=== PATIENT | male | born 1960 | race Asian ===

== ENCOUNTER 2020-01-21 15:30 | Emergency (ER) | payer OTHER ==
[~2020-01-21] VITALS: Ht 175.3 cm; Wt 80.7 kg
[2020-01-21 15:37] VITALS: BP 199/103
--- NOTE | 2020-01-21 15:50 | NUR ---
PT UP AND AMBULATED TO RESTROOM WITH STEADY GAIT
--- NOTE | 2020-01-21 15:50 | NUR ---
Tristin roberto in [facility] - 01/21/20 at 1550 by [email or web address] PT UP AND AB
--- NOTE | 2020-01-21 15:52 | NUR ---
Tristin roberto in [facility] - 01/21/20 at 1633 by [email or web address] PT SEEN BY ROSELYN ROSARIO BRAIN CALLED, PT TRANSPORTED TO CT FOR CT OF HEAD.
--- NOTE | 2020-01-21 15:52 | NUR ---
PT SEEN BY , ROSELYN BRAIN CALLED, PT TRANSPORTED TO CT FOR CT OF HEAD.
--- NOTE | 2020-01-21 15:57 | NUR ---
PT CAME IN TODAY WITH C/O OF NUMBNESS TO RIGHT SIDE X 24 HRS. NO DEFICETS NOTED TO THE RIGHT SIDE, + BILATERAL TAG MAKER, NO ASSEMITRY TO FACE, SPEAKS CLEARLY, ABLE TO AMBULATE WITH STEADY GAIT. PT DENIES HAVING HEADACHE OR BLURRED VISION IN THE LAST 24 HRS. BEDRAIL UP X 1 BED IN LOWEST POSITION NKA NO MED HX
--- NOTE | 2020-01-21 15:57 | NUR ---
DR. POLANCO AT BEDSIDE EVALUATING PT
--- NOTE | 2020-01-21 15:59 | NUR ---
CALLED CT FOR CODE BRAIN FOR PT IN BED 9
--- NOTE | 2020-01-21 16:05 | NUR ---
PT LEFT WITH CT
--- NOTE | 2020-01-21 16:11 | NUR ---
PT IS BACK FROM CT
--- NOTE | 2020-01-21 16:20 | NUR ---
IV LINE ESTABLISHED AND LABS DRAWN, PT REMAINS ON BEDSIDE MONITOR
[2020-01-21 17:03] LABS: BASOPHILS # (AUTO) 0.1 K/uL (0.00-0.22); BASOPHILS % (AUTO) 0.8 % (0.0-2.0); EOSINOPHILS # (AUTO) 0.1 K/uL (0-0.4); EOSINOPHILS % (AUTO) 1.3 % (0.0-4.0); HEMATOCRIT 45.6 % (36-52); HEMOGLOBIN 15.3 g/dL (12.0-18.0); LYMPHOCYTES % (AUTO) 34.2 % (20.5-51.1); MEAN CORPUSCULAR HEMOGLOBIN 32 pg (27-31); MEAN CORPUSCULAR HGB CONC 34 g/dL (33-37); MEAN CORPUSCULAR VOLUME 96.4 fL (80-94); MONOCYTES # (AUTO) 0.5 K/uL (0.8-1.0); MONOCYTES % (AUTO) 6.1 % (1.7-9.3); NEUTROPHILS # (AUTO) 5.1 K/uL (1.8-7.7); NEUTROPHILS % (AUTO) 57.6 % (42.2-75.2); PLATELET COUNT (AUTO) 236 K/uL (140-450); RED BLOOD CELL COUNT(AUTO) 4.73 MIL/uL (4.20-6.10); RED CELL DISTRIBUTION WIDTH 13.6 % (11.6-13.7); WHITE BLOOD COUNT (AUTO) 8.8 K/uL (4.8-10.8)
[2020-01-21 17:26] LABS: PROTHROMBIN TIME 9.7 secs (10.8-13.4)
[2020-01-21 17:30] LABS: ALBUMIN 3.6 g/dL (3.4-5.0); ANION GAP 10.6 (8-16); POTASSIUM 3.6 mmol/L (3.5-5.1); TOTAL BILIRUBIN 0.5 mg/dL (0.0-1.0)
[2020-01-21 18:03] LABS: APPEARANCE,URINE CLEAR (CLEAR); BILIRUBIN,URINE NEGATIVE (NEGATIVE); BLOOD, URINE 1+ (NEGATIVE); LEUKOCYTE ESTERASE ,URINE NEGATIVE (NEGATIVE); NITRITE, URINE NEGATIVE (NEGATIVE); PH,URINE 5.5 (5.0-9.0); UGLUCOSE NEGATIVE (NEGATIVE)
[2020-01-21 18:05] LABS: COLOR,URINE AMBER (YELLOW)
[2020-01-21 18:19] LABS: CALCIUM OXALATE CRYSTALS,UR 0-10 /HPF (None Seen); RBC,URINE 0-5 /HPF (0-5); WBC,URINE NONE SEEN /HPF (0-5)
--- NOTE | 2020-01-21 18:30 | NUR ---
PT TO BE TRANSFERRED TO [facility] FOR HIGHER LEVEL OF CARE. REPORT CALLED TO ED CHARGE NURSE. TRANSPORT TO ARRIVE AROUND [phone]
[2020-01-21 18:50] VITALS: BP 161/92
--- NOTE | 2020-01-21 18:56 | NUR ---
AMBULANCE HERE TO TRANSFER PATIENT TO [facility].
--- NOTE | 2020-01-21 19:09 | NUR ---
Patient to be transferred to [facility]. Is being transferred due to HIGHER LEVEL OF CARE. Receiving facility has accepting physician and available space. ER physician has signed transfer form. Patient or responsible green party has agreed to transfer and signed form. Patient belongings inventoried and will be sent with patient. Copy of nursing notes, lab reports, EKG, Physicians Orders and X-rays to be sent with patient. Report called to ED at receiving facility. ambulance service has been called for transfer. ETA is 30.
== END 2020-01-21 18:57 | disposition short-term general hospital (02) ==
LOC: MED 15:30
DX: I63.9 Cerebral infarction, unspecified (principal)
CPT/HCPCS: 36415; 70450; 71045; 80053; 81001; 84484; 85025; 85610; 93005; 99285; Q0092